=== PATIENT | female | born 2000 | race Caucasian/White ===

== ENCOUNTER → 2022-06-01 | Outpatient (CLI) | payer OTHER, SELFPAY ==
--- NOTE | 2022-06-01 11:20 | EMB_PTH ---
PATIENT: NOEL MORGAN LOC: [facility] U#:[id number] AGE/SX: 21/F ROOM: RE06/01/[address]: Dr. Kendell Conn MD : 2000 BED: DIS: 06/01/2022 SPEC #: [id number] RECD: 06/01/22 11:43 STATUS: SILVINA REQ #: [id number] EMANUEL: 06/01/22 11:[address]: Kendell Conn DEPT: SURGICAL PATHOLOGY RECD BY: Maged Mooney ENTERED: 06/01/22 11:53 SP TYPE: ENDOM BX/C SARAH DR: Dr. Villa Shaikh MD Tissues: Endometrium, NOS Procedures: Surgery Specimen Level IV HEADER OPERATION: Endometrial biopsy PRE-OP DIAGNOSIS: Abnormal uterine bleeding TISSUE SUBMITTED: Endometrial biopsy MICROSCOPIC DIAGNOSIS Endometrial biopsy: Mildly disordered proliferative endometrium. JESSICA:sky 06/02/2022 COMMENT Case has been reviewed in consultation with Dr. Puckett who concurs with the above diagnosis. IDC:AM MICROSCOPIC DESCRIPTION Slides are reviewed. GROSS DESCRIPTION Received in fixative is one container labeled with the patient's name and designated endometrial biopsy. The specimen consists of multiple irregular fragments of barraza-pink soft tissue that in aggregate measure 3 x 2.5 x 0.2 cm. The specimen is totally submitted in one cassette. / SJ:sky 06/01/2022 TC:5 CPT: 24885
== END | disposition home or self-care (01) ==
LOC: LABSPEC 11:32
PROVIDERS: PCP Family Medicine; Visit Provider Obstetrics & Gynecology
DX: N93.9 Abnormal uterine and vaginal bleeding, unspecified (principal)
CPT/HCPCS: 88305

== ENCOUNTER 2022-08-20 10:19 | Day surgery (SDC) | payer OTHER, SELFPAY ==
[2022-08-20] VITALS (8 sets, daily range): BP systolic 97–130; BP diastolic 54–75; PULSE 73–108; RESP 16–18; TEMP 36.6–36.9; O2SAT 99–100; BMI 25.3
[2022-08-20] MEDS: Lactated Ringers 1,000 ML 15 ML IV (10:59)
[2022-08-20 11:03] LABS: Internal QC Validated? YES +Cl - CLEAR BKGD; Pregnancy, Urine Negative Negative
--- NOTE | 2022-08-20 11:28 | PCM.HP.BLA ---
History and Physical Date of Admission: 08/20/22 Chief complaint: Abnormal uterine bleeding History present illness: 21-year-old G0 arrives for hysteroscopy, dilation curettage, endometrial ablation via Dinora. No medical changes since last seen. All questions answered and consent signed. Obstetric history: G0 Past medical history: None Medications: Testosterone, iron, Claritin Past surgical history: [place] teeth extraction, bilateral mastectomy Allergies: No known drug allergies Social history: Denies smoking, alcohol use, drug use Family history: Denies a history of DVT or PE Review of systems: Besides above pertinent positives a full review of systems was performed and found to be negative Physical exam: Vitals: Blood pressure 130/65 pulse 108 respiratory rate 18 temperature 98 Fahrenheit SPO2 100% on room air General: Normal-appearing no acute distress HEENT: Normocephalic/atraumatic no cervical lymphadenopathy Cardiac/respiratory: No use of accessory muscles, nonlabored breathing Abdomen: Soft, nontender, nondistended Extremities: No peripheral edema normal peripheral pulses Psych: Normal affect normal demeanor nonpressured speech Labs: Urine test negative Assessment plan: 21-year-old scheduled for hysteroscopy, dilation curettage, endometrial ablation via Dinora. Patient understands risk of the procedure include but are not limited to visceral or vascular injury, prolonged hospitalization, blood loss and need for transfusion, reoperation. Patient state understanding and wished to proceed. All questions were answered and consent was signed
--- NOTE | 2022-08-20 12:00 | EMB_PTH ---
PATIENT: NOEL MORGAN LOC: [facility] [place] [facility] [place] U#:[id number] AGE/SX: 21/F ROOM: RE08/20/[address]: Dr. Kendell Conn MD : 2000 BED: DIS: 08/20/2022 SPEC #: [id number] RECD: 08/20/22 14:12 STATUS: SILVINA RENicholas #: [id number] EMANUEL: 08/20/22 12:[address]: Kendell Conn DEPT: SURGICAL PATHOLOGY RECD BY: Sandra Gaston ENTERED: 08/23/22 09:33 SP TYPE: ENDOM BX/C OTHR DR: Dr. Villa Shaikh MD Tissues: Endometrium, NOS Procedures: Surgery Specimen Level IV HEADER OPERATION: Hysteroscopy, D & C Dinora PRE-OP DIAGNOSIS: Abnormal uterine bleeding TISSUE SUBMITTED: Endometrial curettings MICROSCOPIC DIAGNOSIS Endometrium, curettings: Glandular and stromal breakdown suggestive of perimenstrual endometrium. Rare strips of benign superficial endocervix. AM:sky 08/24/2022 MICROSCOPIC DESCRIPTION Slides are reviewed. GROSS DESCRIPTION Received in fixative is one container labeled with the patient's name and designated endometrial curettings. The specimen consists of multiple fragments of hemorrhagic soft tissue that in aggregate measure 2.0 x 2.0 x 0.2 cm. The specimen is totally submitted in one cassette. / SJ:sky 08/23/2022 TC:5 CPT: 49117
--- NOTE | 2022-08-20 12:31 | DCINST_ITS ---
Discharge Instructions Diet Discharge Diet: No restrictions Activity Discharge Activity: Return to Normal Activity, May Drive and May Shower May resume sexual activity in: 4-6 weeks Weight Bearing Status: Weight bearing as tolerated Dressing / Incision Call your doctor if your incision/area has: Continuous Slow Oozing and Foul Smelling Discharge Call your doctor if you observe: Fever of 101 or Higher, Shortness of breath and Chest pain Follow Up Care Please Follow Up With: Kendell Conn MD When: 2 weeks postoperatively Test Results: Test results from this visit will be discussed in further detail at your follow- up appointment, if applicable. Discharge Plan Admission Attending Provider: Kendell Conn Primary Care Provider: Villa Shaikh Discharge Orders/Prescriptions Prescriptions: No Action multivitamin Capsule 1 cap PO DAILY loratadine 10 mg Capsule 10 mg PO DAILY testosterone 1.62 % (40.5 mg/2.5 gram) Gel In Packet 1 packet TRANSDERMAL DAILY Rx Instructions: apply 20.25 mg /0.5 packets to max area of EACH upper arm and shoulder albuterol sulfate [ProAir HFA] 90 mcg/actuation Hfa Aerosol Inhaler 1 puff INHALATION Q6H PRN (Reason: ASTHMA) Referrals / Follow Up: Villa Shaikh MD [Primary Care Provider] - Disposition Disposition (needs filled in before D/C Order can be placed): Home, Self Care
--- NOTE | 2022-08-20 12:31 | PCM.OPRPT ---
Report of Operation Date of Procedure: 08/20/22 Pre-Operative Diagnosis: Abnormal uterine bleed Post-Operative Diagnosis: Abnormal uterine bleed Surgery/Procedure Performed:: Hysteroscopy, dilation curettage, endometrial elation via Dinora Description of Surgical Findings:: Surgeon: Kendell Conn MD Anesthesia: MAC EBL: 5 cc Urine output: 150 cc IV fluids: 1000 cc Complications: None Specimen: Endometrial curettings Findings: Preprocedure hysteroscopy shows no pathology. Dinora device initially set to cavity length of 6 cm, cavity safety test not passed, repeat measurements set to 5.5 cm safety test passed and ablation occurred for 120 seconds. Post procedure hysteroscopy with no other pathology other than post ablation. Consent: Patient with abnormal uterine bleeding elects for hysteroscopy, dilation curettage, endometrial ablation via Dinora. Patient understands risk of the procedure include but are not limited to visceral or vascular injury, prolonged hospitalization, blood loss and need for transfusion, reoperation. Patient state understanding and wished to proceed. All questions were answered and consent was signed. Procedure: Patient was brought back to the OR where MAC anesthesia was found to be adequate. Patient was prepared and draped in a dorsolithotomy position with yellowfin stirrups. A weighted speculum is placed in the posterior aspect of vagina and cervical dilators were used to dilate the cervix. Hysteroscope was inserted and above findings were noted. Sharp endometrial curettage was performed in all quadrants, specimen sent to pathology. Cavity length initially found to be 6 cm. Dinora device inserted under direct visualization, safety test could not be passed. After reevaluation of the cavity measurements Dinora cavity length set to 5.5 cm and safety test passed x2. Endometrial ablation occurred for 120 seconds. Dinora device removed under direct visualization. Hysteroscope reinserted and above findings were noted. Good hemostasis was noted. All counts were correct x2. Patient tolerated procedure well and was brought to recovery in stable condition.
== END 2022-08-20 13:30 | disposition home or self-care (01) ==
LOC: SDC 10:21 → AC 10:23
PROVIDERS: Anesthesiology; PCP Family Medicine; Referring Provider Obstetrics & Gynecology; Visit Provider Obstetrics & Gynecology
PROC: 0U5B8ZZ Destruction of Endometrium, Via Natural or Artificial Opening Endoscopic (ICD-10-PCS; CPT 58558; principal; 2022-08-20 11:45)
DX: N93.9 Abnormal uterine and vaginal bleeding, unspecified (principal); Z79.899 Other long term (current) drug therapy; J45.909 Unspecified asthma, uncomplicated
CPT/HCPCS: 58563; 00952; 81025; 88305; J7120; J2405